=== PATIENT | female | born 1970 | race Caucasian/White ===

== ENCOUNTER 2016-05-01 14:08 | Emergency (ER) | payer BC ==
[2016-05-01 15:03] VITALS: BP 100/65
--- NOTE | 2016-05-01 15:27 | UC ---
Respiratory Complaint HPI - HPI Summary HPI Summary: URI symptoms for 4 days. Fever first day, none now. Body aches, fatigue, sinus congestion, ST, earache, PND, dry cough. Heavy smoker. Had heart surgery as child - History of Current Complaint Chief Complaint: UCRespiratory Stated Complaint: UPPER RESPIRATORY Time Seen by Provider: 05/01/16 15:13 Hx Obtained From: Patient Hx Last Menstrual Period: 08/27/14 Onset/Duration: Gradual Onset Timing: Constant Severity Initially: Mild Severity Currently: Mild Character: Cough: Nonproductive Aggravating Factors: Recumbent Position Alleviating Factors: Nothing Associated Signs And Symptoms: Positive: Fever, URI, Nasal Congestion, Hoarseness, Sinus Discomfort - Risk Factors Pulmonary Embolism Risk Factors: Smoking Cardiac Risk Factors: Smoking Pseudomonas Risk Factors: Negative Tuberculosis Risk Factors: Smoking - Allergies/Home Medications Allergies/Adverse Reactions: Allergies Allergy/AdvReac Type Severity Reaction Status Date / Time EKG patches Allergy Hives Uncoded 05/01/16 14:58 PMH/Surg Hx/FS Hx/Imm Hx Endocrine History Of: Denies: Diabetes, Thyroid Disease Cardiovascular History Of: 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 Denies: Hypertension, Pacemaker/ICD Respiratory History Of: Reports: COPD - onset, Asthma GI/ History Of: Denies: Ulcer - Surgical History Surgical History: Yes Surgery Procedure, Year, and Place: open heart surgery at 6 years old - Family History Known Family History: Positive: Hypertension - Social History Occupation: Employed Full-time Lives: With Family Alcohol Use: None Substance Use Type: None Smoking Status (MU): Heavy Every Day Tobacco Smoker Amount Used/How Often: 1/2 ppd Length of Time of Smoking/Using Tobacco: age 15 Household Exposure Type: Cigarettes - Immunization History Most Recent Influenza Vaccination: 2016 Review of Systems Constitutional: Negative Skin: Negative Eyes: Negative ENT: Sore Throat, Ear Ache, Nasal Discharge Respiratory: Cough Cardiovascular: Negative Gastrointestinal: Diarrhea - mild Genitourinary: Negative Motor: Negative Neurovascular: Negative Musculoskeletal: Negative Neurological: Negative Psychological: Negative All Other Systems Reviewed And Are Negative: Yes Physical Exam Triage Information Reviewed: Yes Appearance: Well-Appearing, No Pain Distress, Well-Nourished, Thin Vital Signs: Initial Vital Signs Temp 98.7 F 05/01/16 14:58 Pulse 69 05/01/16 14:58 Resp 16 05/01/16 14:58 BP 100/65 05/01/16 14:58 Pulse Ox 99 05/01/16 14:58 Vital Signs Reviewed: Yes Eye Exam: Normal Eyes: Positive: Conjunctiva Clear ENT: Positive: Pharyngeal erythema, Nasal congestion, Nasal drainage, TMs normal , Muffled/hoarse voice. Negative: Tonsillar swelling, Tonsillar exudate, Trismus Neck exam: Normal Neck: Positive: Supple Respiratory Exam: Normal Cardiovascular Exam: Normal Musculoskeletal Exam: Normal Neurological Exam: Normal Psychological Exam: Normal Skin Exam: Normal UC Diagnostic Evaluation - Laboratory O2 Sat by Pulse Oximetry: 99 Respiratory Course/Dx - Differential Dx/Diagnosis Differential Diagnosis/HQI/PQRI: Bronchitis, Lower Resp Infection, Sinusitis Provider Diagnoses: URI Discharge - Discharge Plan Condition: Stable Disposition: HOME Prescriptions: Azithromycin TAB* [Zithromax TAB (Z-LONG)*] 250 mg PO .Z-LONG INSTRUCTIONS #6 tab Hydrocodone Polistirex-Chlorph [Tussionex Pennkinetic Ext 10-8 mg/5Ml] 1 teasp PO BID PRN #100 ml MDD 10cc PRN Reason: Cough Pseudoephedrine HCl [Sudafed 12 Hour] 120 mg PO BID #20 tab Patient Education Materials: Upper Respiratory Infection (ED) Referrals: Tom Sutton MD [Primary Care Provider] -
== END 2016-05-01 15:30 | disposition home or self-care (01) ==
LOC: UCCORT 14:08
DX: J06.9 Acute upper respiratory infection, unspecified (principal); J44.9 Chronic obstructive pulmonary disease, unspecified; J45.909 Unspecified asthma, uncomplicated; Z87.74 Personal history of (corrected) congenital malformations of heart and circulatory system; F17.210 Nicotine dependence, cigarettes, uncomplicated
CPT/HCPCS: 99212; G0463

== ENCOUNTER 2016-08-09 17:58 | Emergency (ER) | payer BC | END 2016-08-09 18:08 | disposition left against medical advice (07) | LOC: UCCORT 17:58 | DX: R10.9 Unspecified abdominal pain (principal); Z53.21 Procedure and treatment not carried out due to patient leaving prior to being seen by health care provider ==

== ENCOUNTER 2017-05-12 18:12 | Emergency (ER) | payer BC ==
[2017-05-12 19:39] VITALS: BP 100/71
--- NOTE | 2017-05-12 20:01 | UC ---
FLU HPI - HPI Summary HPI Summary: P tc/o sudden onset of nasal congestion, sinus pressure and pain, chills and body aches X 2 days. - History of Current Complaint Chief Complaint: UCGeneralIllness Stated Complaint: FLU LIKE Time Seen by Provider: 05/12/17 19:34 Hx Obtained From: Patient Hx Last Menstrual Period: 08/27/14 ?: No Onset/Duration: Sudden Onset, Lasting Days, Still Present Severity Currently: Mild Severity Initially: Mild Associated Signs & Symptoms: Positive: Myalgia, Nasal Congestion Related Hx: Possible Flu/Infectious Exposure - Risk Factors Influenza Risk Factors: Negative - Allergy/Home Medications Allergies/Adverse Reactions: Allergies Allergy/AdvReac Type Severity Reaction Status Date / Time EKG patches Allergy Hives Uncoded 05/12/17 19:39 PMH/Surg Hx/FS Hx/Imm Hx Previously Healthy: Yes - Surgical History Surgical History: Yes Surgery Procedure, Year, and Place: open heart surgery at 6 years old - Family History Known Family History: Positive: Cardiac Disease, Hypertension - Social History Occupation: Employed Full-time Lives: With Family Alcohol Use: None Substance Use Type: None Smoking Status (MU): Former Smoker Type: Cigarettes Amount Used/How Often: 1/2 ppd Length of Time of Smoking/Using Tobacco: age 15 Have You Smoked in the Last Year: No Household Exposure Type: Cigarettes - Immunization History Most Recent Influenza Vaccination: 2016 Review of Systems Constitutional: Chills, Fatigue Skin: Negative Eyes: Negative ENT: Sinus Congestion, Sinus Pain/Tenderness Respiratory: Cough Cardiovascular: Negative Gastrointestinal: Negative Genitourinary: Negative Motor: Negative Neurovascular: Negative Musculoskeletal: Myalgia Neurological: Negative Psychological: Negative Is Patient Immunocompromised?: No All Other Systems Reviewed And Are Negative: Yes Physical Exam Triage Information Reviewed: Yes Appearance: Ill-Appearing Vital Signs: Initial Vital Signs Temp 98.3 F 05/12/17 19:35 Pulse 70 05/12/17 19:35 Resp 16 05/12/17 19:35 BP 100/71 05/12/17 19:35 Pulse Ox 98 05/12/17 19:35 Vital Signs Reviewed: Yes Eye Exam: Normal ENT Exam: Other ENT: Positive: Nasal congestion, Sinus tenderness Dental Exam: Normal Neck exam: Normal Respiratory Exam: Normal Cardiovascular Exam: Normal Musculoskeletal Exam: Normal Neurological Exam: Normal Psychological Exam: Normal Skin Exam: Normal Flu Course/Dx - Differential Dx/Diagnosis Differential Diagnosis/HQI/PQRI: Influenza, Upper Respiratory Infection, Other - sinusitis Provider Diagnoses: sinusitis Discharge - Discharge Plan Condition: Stable Disposition: HOME Prescriptions: Amoxicillin PO (*) [Amoxicillin 875 MG (*)] 875 mg PO Q12H #20 tab guaiFENesin ER TAB [Mucinex*] 600 mg PO Q12H #20 tab.er Patient Education Materials: Sinusitis (ED) Referrals: Tom Sutton MD [Primary Care Provider] -
[2017-05-12] MEDS ORDERED: Amoxicillin PO (*) 500 MG CAP PO ONE (20:12)
== END 2017-05-12 20:17 | disposition home or self-care (01) ==
LOC: UCCORT 18:12
DX: J32.9 Chronic sinusitis, unspecified (principal); R53.83 Other fatigue; Z87.891 Personal history of nicotine dependence
CPT/HCPCS: 87502; 99212; A9270-GY; G0463

== ENCOUNTER 2017-07-01 09:12 | Emergency (ER) | payer BC ==
[2017-07-01 11:11] VITALS: BP 113/78
--- NOTE | 2017-07-01 11:23 | UC ---
FLU HPI - HPI Summary HPI Summary: Pt c/o sudden onset of cough, nasal congestion, fever, chills, body aches X 2 days. - History of Current Complaint Chief Complaint: UCRespiratory Stated Complaint: CONGESTION Time Seen by Provider: 07/01/17 11:04 Hx Obtained From: Patient Hx Last Menstrual Period: 08/27/14 ?: No Onset/Duration: Sudden Onset, Lasting Days, Still Present Severity Currently: Moderate Severity Initially: Mild Pain Intensity: 8 Associated Signs & Symptoms: Positive: Fever, Myalgia, Cough Related Hx: Possible Flu/Infectious Exposure - Allergy/Home Medications Allergies/Adverse Reactions: Allergies Allergy/AdvReac Type Severity Reaction Status Date / Time EKG patches Allergy Hives Uncoded 07/01/17 11:11 Home Medications: Home Medications Phenylephrine HCl [Sudafed PE] 10 mg PO 07/01/17 [History] PMH/Surg Hx/FS Hx/Imm Hx Previously Healthy: Yes Respiratory History: Asthma - Surgical History Surgical History: Yes Surgery Procedure, Year, and Place: open heart surgery at 6 years old - Family History Known Family History: Positive: Cardiac Disease, Hypertension - Social History Occupation: Employed Full-time Lives: With Family Alcohol Use: Rare Substance Use Type: None Smoking Status (MU): Former Smoker Type: Cigarettes Amount Used/How Often: 1/2 ppd Length of Time of Smoking/Using Tobacco: age 15 Have You Smoked in the Last Year: No Household Exposure Type: Cigarettes - Immunization History Most Recent Influenza Vaccination: 2015 Review of Systems Constitutional: Chills, Fatigue Skin: Negative Eyes: Negative ENT: Sinus Congestion Respiratory: Shortness Of Breath, Cough Cardiovascular: Negative Gastrointestinal: Negative Genitourinary: Negative Motor: Negative Neurovascular: Negative Musculoskeletal: Myalgia Neurological: Negative Psychological: Negative Is Patient Immunocompromised?: No All Other Systems Reviewed And Are Negative: Yes Physical Exam Triage Information Reviewed: Yes Appearance: Ill-Appearing Vital Signs: Initial Vital Signs Temp 99.5 F 07/01/17 11:07 Pulse 76 07/01/17 11:07 Resp 18 07/01/17 11:07 BP 113/78 07/01/17 11:07 Pulse Ox 100 07/01/17 11:07 Vital Signs Reviewed: Yes Eye Exam: Normal ENT: Positive: Nasal congestion Dental Exam: Normal Neck exam: Normal Respiratory Exam: Other Respiratory: Positive: Decreased breath sounds - bilateral bases Cardiovascular Exam: Normal Musculoskeletal Exam: Normal Neurological Exam: Normal Psychological Exam: Normal Skin Exam: Normal Diagnostics - Laboratory Diagnostic Studies Completed/Ordered: rapid flu: positive A Flu Course/Dx - Differential Dx/Diagnosis Differential Diagnosis/HQI/PQRI: Influenza, Upper Respiratory Infection Provider Diagnoses: Influenza A Discharge - Discharge Plan Condition: Stable Disposition: HOME Prescriptions: Albuterol HFA INHALER* [Ventolin HFA Inhaler*] 1 - 2 puff INH Q6H PRN #1 mdi PRN Reason: Sob/Wheezing Oseltamivir CAP* [Tamiflu CAP*] 75 mg PO Q12H #10 cap predniSONE TAB* [Deltasone TAB*] 20 mg PO DAILY #4 tab Patient Education Materials: Influenza (ED) Forms: *Work Release Referrals: Tom Stuton MD [Primary Care Provider] - If Needed
== END 2017-07-01 11:44 | disposition home or self-care (01) ==
LOC: UCCORT 09:12
DX: J10.1 Influenza due to other identified influenza virus with other respiratory manifestations (principal); Z91.048 Other nonmedicinal substance allergy status
CPT/HCPCS: 87502; 99212; G0463

== ENCOUNTER 2017-08-27 12:11 | Emergency (ER) | payer BC ==
[2017-08-27 13:41] VITALS: BP 135/77
--- NOTE | 2017-08-27 15:42 | UC ---
Shoulder Pain HPI - HPI Summary HPI Summary: tripped over her dog this morning while getting OOB. right mid axillary rib pain - History of Current Complaint Chief Complaint: UCUpperExtremity Stated Complaint: FALL/HURT RIGHT SIDE Time Seen by Provider: 08/27/17 15:37 Hx Obtained From: Patient Hx Last Menstrual Period: 08/27/14 ?: No Onset/Duration: Sudden Onset, Lasting Days - 1, Still Present Timing: Constant Severity Initially: Moderate Severity Currently: Moderate Location Of Pain: Is Discrete @ Pain Intensity: 5 Pain Scale Used: 0-10 Numeric Character: Aching, Stiffness Aggravating Factor(s): Movement Alleviating Factor(s): Rest Associated Signs And Symptoms: Positive: Negative Related History: Dominant Hand Right - Allergies/Home Medications Allergies/Adverse Reactions: Allergies Allergy/AdvReac Type Severity Reaction Status Date / Time EKG patches Allergy Hives Uncoded 08/27/17 13:37 PMH/Surg Hx/FS Hx/Imm Hx Previously Healthy: No Respiratory History: COPD Psychological History: Anxiety - Surgical History Surgical History: Yes Surgery Procedure, Year, and Place: open heart surgery at 6 years old - Family History Known Family History: Positive: Cardiac Disease, Hypertension - Social History Occupation: Employed Part-time Lives: With Family Alcohol Use: Rare Substance Use Type: None Smoking Status (MU): Former Smoker Type: Cigarettes Amount Used/How Often: 1/2 ppd Length of Time of Smoking/Using Tobacco: age 15 Have You Smoked in the Last Year: No Household Exposure Type: Cigarettes - Immunization History Most Recent Influenza Vaccination: 2016 Review of Systems Constitutional: Negative Skin: Negative Eyes: Negative ENT: Negative Respiratory: Negative Cardiovascular: Negative Gastrointestinal: Negative Genitourinary: Negative Motor: Negative Neurovascular: Negative Musculoskeletal: Arthralgia - pain in ribs mid axillary line Neurological: Negative Psychological: Negative Is Patient Immunocompromised?: No All Other Systems Reviewed And Are Negative: Yes Physical Exam Triage Information Reviewed: Yes Appearance: Well-Appearing, No Pain Distress, Thin Vital Signs: Initial Vital Signs Temp 97.9 F 08/27/17 13:32 Pulse 62 08/27/17 13:32 Resp 20 08/27/17 13:32 BP 135/77 08/27/17 13:32 Pulse Ox 100 08/27/17 13:32 Vital Signs Reviewed: Yes Eye Exam: Normal Eyes: Positive: Conjunctiva Clear ENT Exam: Normal Dental Exam: Normal Neck exam: Normal Neck: Positive: 1 Respiratory Exam: Normal Cardiovascular Exam: Normal Abdominal Exam: Normal Musculoskeletal Exam: Normal Neurological Exam: Normal Psychological Exam: Normal Skin Exam: Normal Diagnostics - Radiology No standard instances Xray Interpretation: No Acute Changes Radiology Interpretation Completed By: ED Physician, Radiologist Shoulder Course/Dx - Course Assessment/Plan: sling, ice, pain control follow with ortho prn - Differential Dx/Diagnosis Provider Diagnoses: contusion right ribs Discharge - Sign-Out/Discharge Documenting (check all that apply): Discharge/Admit/Transfer - Discharge Plan Condition: Stable Disposition: HOME Prescriptions: Naproxen [Naproxen 500 mg tab] 500 mg PO BID PRN #40 tablet PRN Reason: pain traMADol TAB* [Ultram*] 50 mg PO Q6HR PRN #10 tab MDD 4 PRN Reason: Pain Patient Education Materials: R.I.C.E. Treatment (ED), Shoulder Pain (ED) Referrals: James Cortez MD [Medical Doctor] - 5 Days - Billing Disposition and Condition Condition: STABLE Disposition: HOME
--- NOTE | 2017-08-27 16:10 | RAD ---
HISTORY: Mid axillary rib pain after fall COMPARISONS: None VIEWS: 3, Frontal view of the chest with frontal and oblique views of the right hemithorax. FINDINGS: There is no displaced rib fracture or pneumothorax. The visualized lungs are clear. The patient is status post median sternotomy. IMPRESSION: NO DISPLACED RIB FRACTURE OR PNEUMOTHORAX.
== END 2017-08-27 16:32 | disposition home or self-care (01) ==
LOC: UCCORT 12:11
DX: S20.219A Contusion of unspecified front wall of thorax, initial encounter (principal); W01.0XXA Fall on same level from slipping, tripping and stumbling without subsequent striking against object, initial encounter; Y93.89 Activity, other specified; Y92.003 Bedroom of unspecified non-institutional (private) residence as the place of occurrence of the external cause; Z87.891 Personal history of nicotine dependence
CPT/HCPCS: 99213; G0463

== ENCOUNTER 2018-11-13 10:03 | Emergency (ER) | payer BC ==
[2018-11-13 10:27] VITALS: BP 104/62
--- NOTE | 2018-11-13 10:54 | UC ---
FLU HPI - HPI Summary HPI Summary: Pt presents with c/o sudden onset of cough, nasal congestion, chills, ST, X 1 days. Pt states that she took an OTC decongestant this morning and her symptoms have improved. - History of Current Complaint Chief Complaint: UCGeneralIllness Stated Complaint: HEADACHE,SORE THROAT,EAR CONCERN Time Seen by Provider: 11/13/18 10:47 Hx Obtained From: Patient Hx Last Menstrual Period: 08/27/14 ?: No Onset/Duration: Sudden Onset Severity Currently: Mild Severity Initially: Mild Pain Intensity: 6 Associated Signs & Symptoms: Positive: Myalgia, Cough, Sore Throat, Nasal Congestion, Headache Related Hx: Possible Flu/Infectious Exposure - Risk Factors Influenza Risk Factors: Negative - Allergy/Home Medications Allergies/Adverse Reactions: Allergies Allergy/AdvReac Type Severity Reaction Status Date / Time EKG patches Allergy Hives Uncoded 11/13/18 10:27 PMH/Surg Hx/FS Hx/Imm Hx Previously Healthy: Yes Respiratory History: Asthma - Surgical History Surgical History: Yes Surgery Procedure, Year, and Place: open heart surgery at 6 years old - Family History Known Family History: Positive: Cardiac Disease, Hypertension - Social History Occupation: Employed Full-time Lives: With Family Alcohol Use: Occasionally Substance Use Type: None Smoking Status (MU): Light Every Day Tobacco Smoker Type: Cigarettes Amount Used/How Often: 1/2 ppd Length of Time of Smoking/Using Tobacco: age 15 Have You Smoked in the Last Year: Yes Household Exposure Type: Cigarettes - Immunization History Most Recent Influenza Vaccination: 2016 Vaccination Up to Date: Yes Review of Systems All Other Systems Reviewed And Are Negative: Yes Constitutional: Positive: Fever, Chills, Fatigue Skin: Positive: Negative Eyes: Positive: Negative ENT: Positive: Sore Throat, Sinus Congestion Respiratory: Positive: Cough Cardiovascular: Positive: Negative Gastrointestinal: Positive: Negative Genitourinary: Positive: Negative Motor: Positive: Negative Neurovascular: Positive: Negative Musculoskeletal: Positive: Myalgia Neurological: Positive: Headache Psychological: Positive: Negative Is Patient Immunocompromised?: No Physical Exam Triage Information Reviewed: Yes Appearance: Well-Appearing Vital Signs: Initial Vital Signs Temp 98.9 F 11/13/18 10:22 Pulse 66 11/13/18 10:22 Resp 18 11/13/18 10:22 BP 104/62 11/13/18 10:22 Pulse Ox 97 07/18/19 10:22 Vital Signs Reviewed: Yes Eye Exam: Normal ENT Exam: Normal ENT: Positive: Nasal congestion Dental Exam: Normal Neck exam: Normal Respiratory Exam: Normal Cardiovascular Exam: Normal Musculoskeletal Exam: Normal Neurological Exam: Normal Psychological Exam: Normal Skin Exam: Normal Flu Course/Dx - Differential Dx/Diagnosis Differential Diagnosis/HQI/PQRI: Bronchitis, Influenza, Upper Respiratory Infection Provider Diagnosis: Viral syndrome Discharge - Sign-Out/Discharge Documenting (check all that apply): Patient Departure All imaging exams completed and their final reports reviewed: No Studies - Discharge Plan Condition: Stable Disposition: HOME Patient Education Materials: Decongestant/Expectorant (By mouth), Viral Syndrome (ED) Referrals: Ann Rene PA [Primary Care Provider] - If Needed - Billing Disposition and Condition Condition: STABLE Disposition: Home
== END 2018-11-13 11:01 | disposition home or self-care (01) ==
LOC: UCCORT 10:03
DX: B34.9 Viral infection, unspecified (principal); Z98.890 Other specified postprocedural states; F17.210 Nicotine dependence, cigarettes, uncomplicated
CPT/HCPCS: 99211; G0463

== ENCOUNTER 2019-02-05 11:35 | Emergency (ER) | payer BC ==
[2019-02-05 11:53] VITALS: BP 114/68
--- NOTE | 2019-02-05 12:19 | UC ---
Throat Pain/Nasal Martín HPI - HPI Summary HPI Summary: The patient is a 49-year-old female with a 2 to three-day history of bilateral earache as well as sore throat. She denies any nasal congestion or postnasal drip. She denies any sinus pressure or pain. She has no cough. She denies any chest pain or shortness of breath. - History of Current Complaint Chief Complaint: UCRespiratory Stated Complaint: ST,BILATERAL EAR COMPLAINT Time Seen by Provider: 02/05/19 12:10 Hx Obtained From: Patient Hx Last Menstrual Period: 08/27/14 Onset/Duration: Sudden Onset, Lasting Days Severity: Moderate Pain Intensity: 6 Pain Scale Used: 0-10 Numeric Cough: None Associated Signs & Symptoms: Positive: Negative - Epiglottits Risk Factors Epiglottis Risk Factors: Negative - Allergies/Home Medications Allergies/Adverse Reactions: Allergies Allergy/AdvReac Type Severity Reaction Status Date / Time EKG patches Allergy Hives Uncoded 02/05/19 11:48 Home Medications: Home Medications Bcp 1 tab QPM 02/05/19 [History Confirmed 02/05/19] Citalopram TAB* [CeleXA TAB*] 40 mg PO BEDTIME 02/05/19 [History Confirmed 02/05] Tiotropium CAP.INH (NF) [Spiriva CAP.INH*] 1 inh QPM 02/05/19 [History Confirmed 02/05/19] Varenicline Tartrate [Chantix] 1 tab BID 02/05/19 [History Confirmed 02/05/19] PMH/Surg Hx/FS Hx/Imm Hx Previously Healthy: Yes - Surgical History Surgical History: Yes Surgery Procedure, Year, and Place: open heart surgery at 6 years old - Family History Known Family History: Positive: Cardiac Disease, Hypertension - Social History Alcohol Use: None Substance Use Type: None Smoking Status (MU): Former Smoker Type: Cigarettes Amount Used/How Often: 1/2 ppd Length of Time of Smoking/Using Tobacco: age 15 Have You Smoked in the Last Year: Yes When Did the Patient Quit Smoking/Using Tobacco: 01/30/19 Household Exposure Type: Cigarettes - Immunization History Most Recent Influenza Vaccination: 2016 Vaccination Up to Date: Yes Review of Systems All Other Systems Reviewed And Are Negative: Yes Constitutional: Positive: Negative Skin: Positive: Negative Eyes: Positive: Negative ENT: Positive: Sore Throat, Ear Ache Respiratory: Positive: Negative Cardiovascular: Positive: Negative Gastrointestinal: Positive: Negative Genitourinary: Positive: Negative Motor: Positive: Negative Neurovascular: Positive: Negative Musculoskeletal: Positive: Negative Neurological: Positive: Negative Psychological: Positive: Negative Physical Exam Triage Information Reviewed: Yes Appearance: Well-Appearing, No Pain Distress, Well-Nourished Vital Signs: Initial Vital Signs Temp 98.7 F 02/05/19 11:50 Pulse 67 02/05/19 11:50 Resp 16 02/05/19 11:50 BP 114/68 02/05/19 11:50 Pulse Ox 99 02/05/19 11:50 Vital Signs Reviewed: Yes Eyes: Positive: Conjunctiva Clear ENT: Positive: Hearing grossly normal. Negative: Nasal congestion, Nasal drainage, Trismus, Muffled voice, Hoarse voice Neck: Positive: Supple, Nontender, Enlarged Nodes @ - ant cervical Respiratory: Positive: Lungs clear, Normal breath sounds, No respiratory distress, No accessory muscle use Cardiovascular: Positive: RRR, No Murmur Abdomen Description: Positive: Nontender, No Organomegaly Bowel Sounds: Positive: Present Musculoskeletal: Positive: ROM Intact, No Edema Neurological: Positive: Alert, Muscle Tone Normal Psychological Exam: Normal Skin Exam: Normal Diagnostics - Laboratory Lab Results: strep (-) Throat Pain/Nasal Course/Dx - Differential Dx/Diagnosis Provider Diagnosis: Pharyngitis, Otalgia Discharge ED - Sign-Out/Discharge Documenting (check all that apply): Patient Departure All imaging exams completed and their final reports reviewed: No Studies - Discharge Plan Condition: Critical Disposition: HOME Patient Education Materials: Pharyngitis (ED) Referrals: Ann Rene PA [Primary Care Provider] - If Needed Additional Instructions: strep negative recheck for new or worsening symptoms or if not better in 3-4 days - Billing Disposition and Condition Condition: CRITICAL Disposition: Home
== END 2019-02-05 12:58 | disposition home or self-care (01) ==
LOC: UCCORT 11:35
DX: H92.03 Otalgia, bilateral (principal); J02.9 Acute pharyngitis, unspecified; Z95.1 Presence of aortocoronary bypass graft; Z87.891 Personal history of nicotine dependence
CPT/HCPCS: 87651; 99211; G0463

== ENCOUNTER 2019-04-30 11:09 | Emergency (ER) | payer BC ==
--- OUTSIDE RECORDS SUMMARY | 2019-04-30 11:20 | XMS REPORT | Continuity of Care Document ---
:1970 External Reference #:[id number] Author Name Tom Sutton MD (transmitted by agent of provider Josephine Montanez) Address [address] [place] [address] Care Team Providers Name Role Phone Steve Boyce MD - Internal Care Team Information Movie Star [phone] Medicine Ann Rene PA - Physician Director Of Testing Care Team Information Movie Star [phone] Problems Active Problems Provider Date Syncope and collapse Meeta Keyes MD Onset: 12/03/2014 Migraine Meeta Keyes MD Onset: 12/03/2014 Spasticity Meeta Keyes MD Onset: 12/14/2014 Cervical spondylosis without myelopathy Meeta Keyes MD Onset: 03/30/2015 Acute frontal sinusitis Onset: 04/09/2012 Chronic obstructive lung disease Onset: 04/09/2012 Anxiety state Onset: 04/09/2012 Depressive disorder Onset: 04/09/2012 Panic disorder without agoraphobia Onset: 04/09/2012 Gynecologic examination Onset: 04/09/2012 Social History Type Date Description Comments Sex Unknown ETOH Use Occasionally consumes alcohol Tobacco Use Start: Unknown Patient is a current 1/2 pack per day smoker, smokes every day Recreational Drug Use Never Used Drugs Smoking Status Reviewed: 04/09/19 Patient is a current 1/2 pack per day smoker, smokes every day Exercise Type/Frequency Exercises sporadically Allergies, Adverse Reactions, Alerts Description No Known Drug Allergies Medications Active Medications SIG Qnty Indications Ordering Date Provider Albuterol Sulfate HFA 2 puffs every 6 J44.1 Tom 12/26/2018 hours MD Lesley 108(90Base) mcg/Act Aerosol Citalopram Take One Tablet By 30tabs Tom 11/28/2016 Hydrobromide Mouth Every Day MD Lesley 20mg Tablets Spiriva Handihaler Inhale The 30caps Tom 05/22/2011 Contents Of One MD Lesley 18mcg Capsules Capsule Via Handihaler By Mouth Every Day Norethindrone Take One Tablet By Unknown Acetate/Ethinyl Mouth Every Day Estradiol 0.5-2.5mg-mcg Tablets History Medications Prednisone 40 po daily x 6tabs J44.1 Tom Sutton 12/26/2018 - 20mg Tablets 3 days 04/09/2019 Azithromycin 2 po day one 6tabs J44.1 Tom Sutton 12/26/2018 - 250mg then 1 days 04/09/2019 Tablets 2-5 Chantix one pill 60tabs Z71.6 Tom Sutton 12/03/2018 - 1mg Tablets twice a day 04/09/2019 Immunizations CPT Code Status Date Vaccine Lot # [id number] Given 04/09/2012 Influenza Virus 3Yrs & Over 27065 Given 07/14/2007 Hep B Pediatric/Adolescent 17169 Given 02/11/2007 Hep B Pediatric/Adolescent 60913 Given 01/07/2007 Hep B Pediatric/Adolescent 69647 Given 01/07/2007 Tdap - Tetanus/Diptheria/Acellular Pertussis 82011 Given 03/18/2003 Tetanus And Diptheria (Td) For Adult Use Preservative Free Vital Signs Date Vital Result Comment 04/09/2019 3:52pm Weight 95.00 lb Heart Rate 80 /min BP Systolic 130 mmHg BP Diastolic 82 mmHg O2 % BldC Oximetry 98 % room air 12/26/2018 11:25am Heart Rate 70 /min BP Systolic 94 mmHg BP Diastolic 60 mmHg Respiratory Rate 16 /min Body Temperature 98.5 F O2 % BldC Oximetry 94 % room air Results Test Acquired Date Facility Test Result H/L Range Note Laboratory test 02/05/2019 [facility] Rapid Strep Negative Negative [address] [place] [address] [phone] 1 Cheese Tester: [id number] Procedures Date Code Description Status 10/15/2018 60182373 Mammogram Completed 08/27/2018 [id number] Colonoscopy Completed Medical Devices Description No Information Available Encounters Type Date Location Provider Dx Diagnosis Office Visit 12/26/2018 [facility] Woodruff, J44.1 Chronic obstructive 11:10a Walk-in at [facility] pulmonary disease w Drugs (acute) exacerbation J01.90 Acute sinusitis, unspecified Office Visit 12/03/2018 3:30p [facility] BERTHA Chung Z00.01 Encounter for general adult medical exam w abnormal findings Z71.6 Tobacco abuse counseling Assessments Date Code Description Provider 04/09/2019 E86.0 Dehydration Tom Sutton MD 12/26/2018 J44.1 Chronic obstructive pulmonary disease with BERTHA Renteria (acute) exacerbation 12/26/2018 J01.90 Acute sinusitis, unspecified BERTHA Renteria 12/03/2018 Z00.01 Encounter for general adult medical BERTHA Chung examination with abnormal findings 12/03/2018 Z71.6 Tobacco abuse counseling BERTHA Chung Plan of Treatment Future Appointment(s):07/09/2019 4:00 pm - BERTHA Chung at [facility]03/2019 - Tom Sutton MDE86.0 Dehydration Functional Status Description No Information Available Mental Status Description No Information Available Referrals Description No Information Available
--- OUTSIDE RECORDS SUMMARY | 2019-04-30 11:20 | XMS REPORT | Continuity of Care Document ---
:1970 External Reference #:[id number] Author Name BERTHA Renteria Address [address] [place] [address] Care Team Providers Name Role Phone Steve Boyce MD - Internal Care Team Information Binder Operator [phone] Medicine Ann Rene PA - Physician Drill Press Operator For Metal Care Team Information Binder Operator Problems Active Problems Provider Date Syncope and [...] Use Never Used Drugs Smoking Status Reviewed: 12/05/18 Patient is a current 1/2 pack per day smoker, smokes every day Exercise Type/Frequency Exercises sporadically Allergies, Adverse Reactions, Alerts Description No Known Drug Allergies Medications Active Medications SIG Qnty Indications Ordering Date Provider Albuterol Sulfate HFA 2 puffs every 6 J44.1 Tom 12/26/2018 hours MD Lesley 108(90Base) mcg/Act Aerosol Prednisone 40 po daily x 3 6tabs J44.1 Tom 12/26/2018 20mg Tablets days MD Lesley Azithromycin 2 po day one then 6tabs J44.1 Tom 12/26/2018 250mg 1 days 2-5 MD Lesley Tablets Chantix one pill twice a 60tabs Z71.6 Tom 12/03/2018 1mg Tablets day MD Lesley Chantix Starting as directed 53tabs Z72.0 Tom 06/03/2018 Month Chandra MD Lesley 0.5mg X 11 & 1 mg X 42 Tablets Citalopram Take One Tablet By 30tabs Tom 11/28/2016 Hydrobromide Mouth Every Day MD Lesley 20mg Tablets Spiriva Handihaler Inhale The 30caps Tom 05/22/2011 Contents Of One MD Lesley 18mcg Capsules Capsule Via Handihaler By Mouth Every Day Norethindrone Take One Tablet By Unknown Acetate/Ethinyl Mouth Every Day Estradiol 0.5-2.5mg-mcg Tablets Immunizations CPT Code Status Date Vaccine Lot # [id number] Given 04/09/2012 Influenza Virus 3Yrs & Over 78099 Given 07/14/2007 Hep B Pediatric/Adolescent 75163 Given 02/11/2007 Hep B Pediatric/Adolescent 77187 Given 01/07/2007 Hep B Pediatric/Adolescent 50281 Given 01/07/2007 Tdap - Tetanus/Diptheria/Acellular Pertussis 11501 Given 03/18/2003 Tetanus And Diptheria (Td) For Adult Use Preservative Free Vital Signs Date Vital Result Comment 12/26/2018 11:25am Heart Rate 70 /min BP Systolic 94 mmHg BP Diastolic 60 mmHg Respiratory Rate 16 /min Body Temperature 98.5 F O2 % BldC Oximetry 94 % room air 12/03/2018 3:37pm Height 60 inches 5'0" Weight 92.00 lb BP Systolic Sitting 104 mmHg BP Diastolic Sitting 40 mmHg BMI (Body Mass Index) 18.0 kg/m2 Results Test Acquired Date Facility Test Result H/L Range Note Laboratory test 02/05/2019 [facility] Rapid Strep Negative Negative [address] [place] [address] [phone] 1 Clinic Office Coordinator: [id number] Procedures Date Code Description Status 10/15/2018 [id number] Mammogram Completed 08/27/2018 [id number] Colonoscopy Completed Medical Devices Description No Information Available Encounters Type Date Location Provider Dx Diagnosis Office Visit 12/26/2018 [facility] Divine Woodruff J44.1 Chronic obstructive 11:10a Walk-in at [facility] pulmonary disease w Drugs (acute) exacerbation J01.90 Acute sinusitis, unspecified Office Visit 12/03/2018 3:30p [facility] Primary Care BERTHA Chung Z00.01 Encounter for general adult medical exam w abnormal findings Z71.6 Tobacco abuse counseling Assessments Date Code Description Provider 12/26/2018 J44.1 Chronic obstructive pulmonary disease with BERTHA Renteria (acute) exacerbation 12/26/2018 J01.90 Acute sinusitis, unspecified BERTHA Renteria 12/03/2018 Z00.01 Encounter for general adult medical examination BERTHA Chung with abnormal findings 12/03/2018 Z71.6 Tobacco abuse counseling BERTHA Chung Plan of Treatment 12/26/2018 - BERTHA RenteriaJ44.1 Chronic obstructive pulmonary disease with ( acute) exacerbationNew Medication:Albuterol Sulfate HFA 108(90 Base) mcg/Act - 2 puffs every 6 hoursPrednisone 20 mg - 40 po daily x 3 daysAzithromycin 250 mg - 2 po day one then 1 days 2-5Recommendations:FOLLOW UP WITH PRIMARY CARE IN 1 WEEK OR SOONER IDF WORSE.J01.90 Acute sinusitis, unspecifiedComments:pt notes BP runs low and the O2 saturation runs low as well.she has taken zpak in past and toleratesit well without side effects.will tx for copd flare. she will benefit from that tx for her sinuses as well. Functional Status Description No Information Available Mental Status Description No Information Available Referrals Description No Information Available
--- OUTSIDE RECORDS SUMMARY | 2019-04-30 11:20 | XMS REPORT | Continuity of Care Document ---
:1970 External Reference #:[id number] Author Name Tom Sutton MD (transmitted by agent of provider Jaimie Rapp) Address [address] [place] [address] Care Team Providers Name Role Phone Steve Boyce MD - Internal Care Team Information [employer] Sales Engineer [phone] Medicine Ann Rene PA - Physician [facility] Care Team Information Aerospace Products Sales Engineer [phone] Problems Active Problems Provider Date Syncope and [...] CPT Code Status Date Vaccine Lot # [id number] Given 04/09/2012 Influenza Virus 3Yrs & Over 65588 Given 07/14/2007 Hep B Pediatric/Adolescent 91816 Given 02/11/2007 Hep B Pediatric/Adolescent 58337 Given 01/07/2007 Hep B Pediatric/Adolescent 83663 Given 01/07/2007 Tdap - Tetanus/Diptheria/Acellular Pertussis 32109 Given 03/18/2003 Tetanus And Diptheria (Td) For [...] Result H/L Range Note Laboratory test 02/05/2019 [facility] Rapid Strep Negative Negative [address] [place] [address] [phone] Managing Consultant: [id number] Procedures Date Code Description Status 10/15/2018 [id number] Mammogram Completed 08/27/2018 [id number] Colonoscopy Completed Medical Devices Description No Information Available Encounters Type Date Location Provider Dx Diagnosis Office Visit 12/26/2018 [facility] Mihir Renteria44.1 Chronic obstructive 11:10a Walk-in at [facility] pulmonary disease w Drugs (acute) exacerbation J01.90 Acute sinusitis, unspecified Office Visit 12/03/2018 3:30p [facility] Primary Care BERTHA Chung Z00.01 Encounter [...] Appointment(s):07/09/2019 4:00 pm - BERTHA Chung at [facility] Primary Care03/2019 - Tom Sutton MDE86.0 Dehydration Functional Status Description No Information Available Mental Status Description No Information Available Referrals Description No Information Available
[2019-04-30 11:33] VITALS: BP 115/71
--- NOTE | 2019-04-30 12:27 | UC ---
Throat Pain/Nasal Martín HPI - HPI Summary HPI Summary: 49-year-old female presents with sinuspressure, nasal congestion, sore throat, cough with congestion and fatigue for approximately 9 days or so. Some over-the -counter medications haven't helped. Exertion or shortness symptoms. No fevers or chills. Having some ear pressure as well. - History of Current Complaint Chief Complaint: UCRespiratory Stated Complaint: SORE THROAT, EAR PAIN, HEAD CONGESTION Time Seen by Provider: 04/30/19 12:21 Hx Obtained From: Patient Hx Last Menstrual Period: 08/27/14 Onset/Duration: Gradual Onset Pain Intensity: 7 Cough: Productive - Allergies/Home Medications Allergies/Adverse Reactions: Allergies Allergy/AdvReac Type Severity Reaction Status Date / Time EKG patches Allergy Hives Uncoded 04/30/19 11:28 PMH/Surg Hx/FS Hx/Imm Hx Previously Healthy: Yes - Surgical History Surgical History: Yes Surgery Procedure, Year, and Place: open heart surgery at 6 years old - Family History Known Family History: Positive: Cardiac Disease, Hypertension - Social History Alcohol Use: None Substance Use Type: None Smoking Status (MU): Former Smoker Type: Cigarettes Amount Used/How Often: 1/2 ppd Length of Time of Smoking/Using Tobacco: ~1/2 PPD x 34 Years Have You Smoked in the Last Year: Yes When Did the Patient Quit Smoking/Using Tobacco: 01/30/19 Household Exposure Type: Cigarettes - Immunization History Most Recent Influenza Vaccination: 2016 Vaccination Up to Date: Yes Review of Systems All Other Systems Reviewed And Are Negative: Yes Constitutional: Positive: Fatigue ENT: Positive: Sore Throat, Ear Ache, Nasal Discharge, Sinus Congestion, Sinus Pain/Tenderness Respiratory: Positive: Cough Is Patient Immunocompromised?: No Physical Exam Triage Information Reviewed: Yes Appearance: Well-Appearing, No Pain Distress, Well-Nourished Vital Signs: Initial Vital Signs Temp 98.3 F 04/30/19 11:26 Pulse 88 04/30/19 11:26 Resp 18 04/30/19 11:26 BP 115/71 04/30/19 11:26 Pulse Ox 99 04/30/19 11:26 Vital Signs Reviewed: Yes Eye Exam: Normal ENT Exam: Normal ENT: Positive: Nasal congestion, TM dull, Sinus tenderness Neck exam: Normal Neck: Positive: 1 Respiratory Exam: Normal Cardiovascular Exam: Normal Musculoskeletal Exam: Normal Neurological Exam: Normal Psychological Exam: Normal Skin Exam: Normal Throat Pain/Nasal Course/Dx - Course Course Of Treatment: patient approximately 9 days with sinus pressure that is worsening. She is tried Flonase, antihistamine, negative and [id number] medications without relief. She still having some teeth discomfort and worsening sinus pressure. start Augmentin at this time. if sx worsen got to ED - Differential Dx/Diagnosis Differential Diagnosis/HQI/PQRI: Otitis Media, Pharyngitis, Sinusitis, Tonsillitis, URI Provider Diagnosis: Sinusitis Discharge ED - Sign-Out/Discharge Documenting (check all that apply): Patient Departure All imaging exams completed and their final reports reviewed: No Studies - Discharge Plan Condition: Good Disposition: HOME Prescriptions: Amoxicillin/Clavulanate TAB* [Augmentin TAB 875*] 875 mg PO BID #14 tab Patient Education Materials: Sinusitis (ED) Referrals: Ann Rene PA [Primary Care Provider] - 4 Days () - Billing Disposition and Condition Condition: GOOD Disposition: Home
== END 2019-04-30 12:42 | disposition home or self-care (01) ==
LOC: UCCORT 11:09
DX: J32.9 Chronic sinusitis, unspecified (principal); J02.9 Acute pharyngitis, unspecified; R53.83 Other fatigue; R05 Cough; Z91.09 Other allergy status, other than to drugs and biological substances; Z87.891 Personal history of nicotine dependence
CPT/HCPCS: 87651; 99212; G0463

== ENCOUNTER 2019-06-04 10:46 | Emergency (ER) | payer BC ==
[2019-06-04 13:09] VITALS: BP 102/67
--- NOTE | 2019-06-04 13:20 | UC ---
Throat Pain/Nasal Martín HPI - HPI Summary HPI Summary: 49 y/o female presents to the urgent care c/o Sinus pressure and congestion with clear post nasal drip for the past 2 days. Last night she was hot w/ chills, but denies fever, This morning she woke up w/ body aches and more sinus congestion. She took Nyquill PO to alleviate symptoms. She is eating well and drinking fluids. She is concerned w/ influenza. also sore throat this morning. - History of Current Complaint Chief Complaint: UCGeneralIllness Stated Complaint: SINUSES Time Seen by Provider: 06/04/19 13:08 Hx Obtained From: Patient Hx Last Menstrual Period: 08/27/14 ?: No - menopausal Onset/Duration: Lasting Days - 2 days, Still Present Severity: Moderate Pain Intensity: 4 - sore throat Pain Scale Used: 0-10 Numeric Cough: Nonproductive Associated Signs & Symptoms: Positive: Sinus Discomfort, Nasal Discharge - clear , Fever. Negative: Dysphagia, Wheezing - Epiglottits Risk Factors Epiglottis Risk Factors: Negative - Allergies/Home Medications Allergies/Adverse Reactions: Allergies Allergy/AdvReac Type Severity Reaction Status Date / Time EKG patches Allergy Hives Uncoded 06/04/19 13:10 PMH/Surg Hx/FS Hx/Imm Hx Previously Healthy: Yes - Pt denies PMHX - Surgical History Surgical History: Yes Surgery Procedure, Year, and Place: open heart surgery at 6 years old - Family History Known Family History: Positive: Cardiac Disease, Hypertension Family History: cervical cancer - Social History Occupation: Employed Full-time Lives: With Family Alcohol Use: None Substance Use Type: None Smoking Status (MU): Former Smoker Type: Cigarettes Amount Used/How Often: 1/2 ppd Length of Time of Smoking/Using Tobacco: ~1/2 PPD x 34 Years Have You Smoked in the Last Year: Yes When Did the Patient Quit Smoking/Using Tobacco: 01/30/19 Household Exposure Type: Cigarettes - Immunization History Most Recent Influenza Vaccination: 2016 Vaccination Up to Date: Yes Review of Systems All Other Systems Reviewed And Are Negative: Yes Constitutional: Positive: Fever, Chills, Fatigue, Other - body aches Skin: Positive: Negative Eyes: Positive: Negative ENT: Positive: Sore Throat, Ear Ache - B/L ear pressure, Nasal Discharge - clear , Sinus Congestion, Other - PND Respiratory: Positive: Cough - dry Cardiovascular: Positive: Negative Gastrointestinal: Positive: Negative Genitourinary: Positive: Negative Motor: Positive: Negative Neurovascular: Positive: Negative Musculoskeletal: Positive: Myalgia Neurological: Positive: Headache Psychological: Positive: Negative Is Patient Immunocompromised?: No Physical Exam - Summary Physical Exam Summary: VITAL SIGNS: Reviewed. GENERAL: Patient is a well developed and nourished thin female who is sitting comfortably in the examining table. Patient is not in any acute respiratory distress. HEAD AND FACE: No signs of trauma. No ecchymosis, hematomas or skull depressions. No sinus tenderness. EYES: PERRLA, EOMI x 2, No injected conjunctiva, no nystagmus. No photophobia. EARS: Hearing grossly intact. Ear canals and tympanic membranes are within normal limits. MOUTH: Positive pharynx with mild erythema, no exudates, No B/L tonsillar enlargement , no exudate. Uvula in midline. edematous nasal mucosa w/ clear nasal discharge, clear PND NECK: Supple, trachea is midline, Positive anterior cervical lymphadenopathy, no JVD, no carotid bruit, no c-spine tenderness, neck with full ROM. No meningeal signs, no Kernig's or brudzinskis signs. CHEST: Symmetric, no tenderness at palpation LUNGS: Clear to auscultation bilaterally. No wheezing or crackles. CVS: Regular rate and rhythm, S1 and S2 present, no murmurs or gallops appreciated. ABDOMEN: Soft, non-tender. No signs of distention. No rebound no guarding, and no masses palpated. Bowel sounds are normal. EXTREMITIES: FROM in all major joints, no edema, no cyanosis or clubbing. NEURO: Alert and oriented x 3. No acute neurological deficits. Pt follows commands. SKIN: Dry and warm Triage Information Reviewed: Yes Vital Signs: Initial Vital Signs Temp 98.4 F 06/04/19 13:08 Pulse 68 06/04/19 13:08 Resp 14 06/04/19 13:08 BP 102/67 06/04/19 13:08 Pulse Ox 100 06/04/19 13:08 Throat Pain/Nasal Course/Dx - Course Course Of Treatment: 49 y/o female presents to the urgent care c/o Sinus pressure and congestion with clear post nasal drip for the past 2 days. Last night she was hot w/ chills, but denies fever, This morning she woke up w/ body aches and more sinus congestion. She took Nyquill PO to alleviate symptoms. She is eating well and drinking fluids. She is concerned w/ influenza. also sore throat this morning. Hx obtained. Pt is hemodynamically stable, A&OX3, febrile w/ URI and cough on examination. Rapid strep: negative, Rapid influenza A&B: negative. Pt Rx Tessalon tabs PO to alleviate cough and Advised to take Ibuprofen PO for pain or fever and hand washing. Pt advised to rest, increase fluid intake, eat well and avoid strenuous exercise. If symptoms do not improve or worsen advised to return to the urgent care or f/u with her PCP for further evaluation and treatment. Pt understood and agreed with the plan of care. - Differential Dx/Diagnosis Differential Diagnosis/HQI/PQRI: Influenza, Laryngitis, Mononucleosis, Pharyngitis, Sinusitis, Tonsillitis, URI Provider Diagnosis: Upper respiratory infection, Cough Discharge ED - Sign-Out/Discharge Documenting (check all that apply): Patient Departure - D/C home All imaging exams completed and their final reports reviewed: No Studies - Discharge Plan Condition: Stable Disposition: HOME Prescriptions: Benzonatate CAP* [Tessalon 100 MG CAP*] 100 mg PO TID PRN #21 cap PRN Reason: Cough Patient Education Materials: Upper Respiratory Infection (ED) Forms: *Work Release Referrals: Ann Rene PA [Primary Care Provider] - 3 Days Additional Instructions: 1-Take Tessalon PO tabs as directed to alleviate cough. Increase fluid intake , rest and eat well. Use saline drops to clear your sinuses as directed 2-Please take ibuprofen PO q6-8hrs prn as instructed after meals to alleviate pain and swelling. Increase fluid intake, eat well, rest and avoid strenuous exercise 3-If symptoms do not improve or worsen please return to the urgent care or f/u with your PCP in 3 days for further evaluation and treatment. - Billing Disposition and Condition Condition: STABLE Disposition: Home - Attestation Statements Provider Attestation: I was available for consult. This patient was seen by the [facility]. The patient was not presented to, seen by, or examined by me. -Constantino
[2019-06-04 13:51] LABS: Influenza A Molecular Negative (Negative); Influenza B Molecular Negative (Negative)
== END 2019-06-04 14:00 | disposition home or self-care (01) ==
LOC: UCCORT 10:46
DX: J06.9 Acute upper respiratory infection, unspecified (principal); R05 Cough; H92.03 Otalgia, bilateral; Z91.09 Other allergy status, other than to drugs and biological substances; Z87.891 Personal history of nicotine dependence
CPT/HCPCS: 87651; 99212; G0463

== ENCOUNTER 2019-07-17 14:15 | Emergency (ER) | payer BC ==
[2019-07-17 15:42] VITALS: BP 101/67
--- NOTE | 2019-07-17 15:54 | UC ---
Throat Pain/Nasal Martín HPI - HPI Summary HPI Summary: 49 yo with past hx of sinus infections, comes with 2 days of symptoms, without fever, occasional cough secondary to drainage. Using sudafed regularly. - History of Current Complaint Chief Complaint: UCGeneralIllness Stated Complaint: SINUS CONCERN Time Seen by Provider: 07/17/19 15:48 Hx Obtained From: Patient Hx Last Menstrual Period: 08/27/14 Onset/Duration: Gradual Onset, Lasting Days - 3 Pain Intensity: 0 Cough: Nonproductive Associated Signs & Symptoms: Positive: Sinus Discomfort, Nasal Discharge - Epiglottits Risk Factors Epiglottis Risk Factors: Negative - Allergies/Home Medications Allergies/Adverse Reactions: Allergies Allergy/AdvReac Type Severity Reaction Status Date / Time EKG patches Allergy Hives Uncoded 07/17/19 15:42 Home Medications: Home Medications Bcp 1 tab PO QPM 02/05/19 [History Confirmed 07/17/19] Citalopram TAB* [Celexa TAB*] 40 mg PO BEDTIME 02/05/19 [History Confirmed 07/16] Tiotropium CAPSULE (NF) [Spiriva CAPSULE (NF)] 18 mcg INH QPM 02/05/19 [History Confirmed 07/17/19] Varenicline Tartrate [Chantix] 1 mg PO BID 02/05/19 [History Confirmed 07/17/19] Amoxicillin PO (*) [Amoxicillin 875 MG (*)] 875 mg PO BID #14 tab 07/17/19 [Rx] PMH/Surg Hx/FS Hx/Imm Hx Previously Healthy: Yes - former smoker - Surgical History Surgical History: Yes Surgery Procedure, Year, and Place: open heart surgery at 6 years old - Family History Known Family History: Positive: Cardiac Disease, Hypertension Family History: cervical cancer - Social History Occupation: Employed Full-time Lives: With Family Alcohol Use: None Substance Use Type: None Smoking Status (MU): Former Smoker Type: Cigarettes Amount Used/How Often: 1/2 ppd Length of Time of Smoking/Using Tobacco: ~1/2 PPD x 34 Years Have You Smoked in the Last Year: Yes When Did the Patient Quit Smoking/Using Tobacco: 01/30/19 Household Exposure Type: Cigarettes - Immunization History Most Recent Influenza Vaccination: 2016 Vaccination Up to Date: Yes Review of Systems All Other Systems Reviewed And Are Negative: Yes Constitutional: Positive: Fatigue Skin: Positive: Negative Eyes: Positive: Negative ENT: Positive: Sore Throat Respiratory: Positive: Cough - occasional only Cardiovascular: Positive: Negative Gastrointestinal: Positive: Negative Genitourinary: Positive: Negative Motor: Positive: Negative Neurovascular: Positive: Negative Musculoskeletal: Positive: Negative Neurological/Mental Status: Positive: Negative Psychological: Positive: Negative Is Patient Immunocompromised?: No Physical Exam Triage Information Reviewed: Yes Appearance: Well-Appearing, No Pain Distress Vital Signs: Initial Vital Signs Temp 98.9 F 07/17/19 15:38 Pulse 68 07/17/19 15:38 Resp 16 07/17/19 15:38 BP 101/67 07/17/19 15:38 Pulse Ox 97 07/17/19 15:38 Eyes: Positive: Conjunctiva Clear ENT: Positive: Pharyngeal erythema, TMs normal, Sinus tenderness Dental Exam: Normal Neck: Positive: Supple, Nontender, No Lymphadenopathy Respiratory: Positive: Lungs clear, Normal breath sounds Cardiovascular: Positive: RRR, No Murmur Musculoskeletal Exam: Normal Neurological Exam: Normal Neurological: Positive: Alert, Muscle Tone Normal Psychological Exam: Normal Skin Exam: Normal Throat Pain/Nasal Course/Dx - Course Course Of Treatment: amoxicillin for treatment of suspected sinusitis. - Differential Dx/Diagnosis Differential Diagnosis/HQI/PQRI: Pharyngitis, Sinusitis, URI Provider Diagnosis: Sinusitis Discharge ED - Sign-Out/Discharge Documenting (check all that apply): Patient Departure All imaging exams completed and their final reports reviewed: No Studies - Discharge Plan Condition: Stable Disposition: HOME Prescriptions: Amoxicillin PO (*) [Amoxicillin 875 MG (*)] 875 mg PO BID #14 tab Patient Education Materials: Sinusitis (ED) Referrals: Ann Rene PA [Primary Care Provider] - Additional Instructions: Please take the full course of antibiotics for treatment of sinus infection. Continue use of sudafed for relief of symptoms. - Billing Disposition and Condition Condition: STABLE Disposition: Home
== END 2019-07-17 16:22 | disposition home or self-care (01) ==
LOC: UCCORT 14:15
DX: J32.9 Chronic sinusitis, unspecified (principal); Z95.1 Presence of aortocoronary bypass graft; Z87.891 Personal history of nicotine dependence
CPT/HCPCS: 99212; G0463